=== PATIENT | male | born 1990 | race Caucasian/White ===

== ENCOUNTER 2024-01-08 20:33 | Emergency (ER) | payer SELFPAY ==
[2024-01-08 20:38] VITALS: BP 142/89; PULSE 77; RESP 16; TEMP 36.8; O2SAT 99; BMI 21.8
--- NOTE | 2024-01-08 20:49 | ED_ITS ---
HPI - Skin/Abscess/Foreign Bdy General: Chief complaint: Skin/Abscess/Foreign Body Stated complaint: RASH Time Seen by Provider: 01/08/24 20:35 History of Present Illness: Presents with 1 week history of patchy red dry rash to bilateral elbows and rash to the foot. Onset 1 week ago. Denies itchiness Denies burning Has trialed hydrocortisone. The rash on the toes have gotten better and not the elbows. Denies medical or surgical history Related Data Previous Rx's Medication Instructions Recorded white petrolatum 41 % topical 1 applic topical Q12H #7 grams 01/08/24 ointment (Aquaphor Healing) Review of Systems General: Reports: 10 or more systems reviewed and unremarkable except in HPI and below Physical Exam Skin: NARRATIVE SKIN EXAM: Skin rash to bilateral elbows. RASHES: rashes noted Dry red patchy-eczema appearing Rash type: Yes plaque Rash distribution: Yes clustered Course Vital Signs: Vital signs: Vital Signs Temperature 98.2 F 01/08/24 20:38 Pulse Rate 77 01/08/24 20:38 Respiratory Rate 16 01/08/24 20:38 Blood Pressure 142/89 01/08/24 20:38 Pulse Oximetry 99 01/08/24 20:38 MDM - Skin/Abscess/Foreign Bdy Medicial Decision Making Patient arrived with rash that is very similar appearing to an eczema rash to the bilateral elbows. He has been using hydrocortisone cream on it but it has not improved. Here in the emergency department I provided him with Aquaphor. He is going to be discharged with instructions to use Aquaphor twice daily. All questions answered No radiology studies performed this visit Discharge Plan Discharge Patient Disposition: Home Clinical Impression: Eczema Condition: Stable Prescriptions: New Aquaphor Healing 41 % ointment 1 applic topical Q12H Qty: 7 0RF Discharge Orders: Discharge ED (Routine); Ordered 01/08/24 Ordered By: Dm August Discharge Diet: Advance as tolerated Discharge Activity: Resume usual activity Patient Instructions: Pain Management, Eczema (ED) Coding Level of Care Code ED Engraver Seals for Greyson Long
[2024-01-08 21:09] VITALS: BP 138/86; PULSE 74; RESP 16; O2SAT 98
== END 2024-01-08 21:14 | disposition home or self-care (01) ==
PROVIDERS: Emergency Provider Nurse Practitioner
DX: L30.9 Dermatitis, unspecified (principal)
CPT/HCPCS: 99283

== ENCOUNTER 2024-01-10 09:57 | Emergency (ER) | payer SELFPAY ==
--- NOTE | 2024-01-10 10:01 | ECG_ITS ---
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
[2024-01-10 10:04] VITALS: BP 110/66; PULSE 77; RESP 16; TEMP 36.7; O2SAT 100
--- NOTE | 2024-01-10 10:12 | XR_ITS ---
WS: [id number] XR chest 1V portable [id number] REASON FOR EXAM: chest pain FINDINGS: The heart and the mediastinum are within normal limits. Calcified granulomas disease bilaterally. No acute pulmonary parenchymal or pleural abnormality. No lung nodule, lung mass, or adenopathy. No acute abnormality of the bony thorax. XR/XR chest 1V portable [id number] IMPRESSION: No acute chest abnormality.
--- NOTE | 2024-01-10 10:13 | ED_ITS ---
HPI - Chest Pain 2 General: Chief Complaint: Chest Pain Stated Complaint: chest pain Time Seen by Provider: 01/10/24 10:00 Source: patient Mode of arrival: ambulatory Limitations: no limitations History of Present Illness: Patient is a 33-year-old male who presents to the ED today from nursing home with a complaint of chest pain with deep inhalation. He states symptoms have been intermittent starting yesterday. He states he only has pain with deep inhalation. He has not had a cough or other URI-like symptoms. No fevers. He states he does not feel short of breath at rest. He states with deep inhalation, he feels like his breath catches . Feels like pain is mainly located posteriorly near his left shoulder blade. No recent surgeries. No lower extremity swelling or calf pain. No risk factors for PE. His vital signs are completely stable upon arrival arrival. He clinically appears in no acute distress. Patient was seen here in the ED 2 days ago for a complaint of eczema. MD complaint: chest pain Onset (ago): day(s) Timing of current episode: episodic Prior episodes: Yes Onset: during rest Pain location: posterior Pain radiation: none Severity: moderate Quality: sharp Relieving factors: nothing Exacerbating factors: inspiration Associated symptoms: Reports no associated symptoms; Deny abdominal pain, dyspnea, fever(s), nausea, palpitations, syncope or vomiting Treatment prior to arrival: none Risk Factors: Coronary artery disease risk factors: none Thoracic aortic dissection risk factors: none Related Data Previous Rx's Medication Instructions Recorded white petrolatum 41 % topical 1 applic topical Q12H #7 grams 01/08/24 ointment (Aquaphor Healing) Allergies Allergy/AdvReac Type Severity Reaction Status Date / Time No Known Allergies Allergy Verified 01/10/24 10:08 Review of Systems 2 Const: Denies: fever(s), chills, body aches, fatigue or malaise ENMT: Denies: throat pain, odynophagia, nasal discharge, nasal congestion or sinus pain Card: Reports: chest pain; Denies: palpitations, irregular heart rhythm, edema, swelling of feet/ankles, lightheadedness, syncope, pre-syncope, dyspnea on exertion, orthopnea, leg pain with exertion or acrocyanosis Resp: Reports: pain on inspiration; Denies: dyspnea, productive cough, non-productive cough, wheezing, stridor, hemoptysis or chest congestion GI: Denies: abdominal pain, nausea, vomiting or diarrhea : Denies: flank pain, dysuria or hematuria Musc: Denies: neck pain, back pain, extremity pain, extremity swelling, joint pain or joint swelling Skin/Breast: Denies: rash Neuro: Denies: headache(s), numbness in extremities, weakness in extremities, sensory changes or dizziness Physical Exam 2 Const: COMMON NORMALS: no acute distress, average body habitus, patient oriented x3, no limitations, healthy appearing, alert and well nourished G ENERAL APPEARANCE: cooperative ORIENTATION/CONSCIOUSNESS: Yes awake, Yes oriented to person, Yes oriented to place and Yes oriented to time Neck/C-Spine: COMMON NORMALS: no JVD Chest: COMMONS NORMALS: normal inspection of the chest and normal palpation of entire chest wall Resp: COMMON NORMALS: normal respiratory effort and clear to auscultation bilaterally AUSCULTATION: clear to auscultation bilaterally Cardio: COMMON NORMALS: no JVD, regular rate and regular rhythm RATE: r egular rate RHYTHM: regular rhythm GI: COMMON NORMALS: Normal to inspection, nondistended, normoactive bowel sounds present, Soft to palpation, non-tender, No hepatosplenomegaly present and no masses PALPATION: Yes Soft to palpation and Yes No hepatosplenomegaly present : COMMON NORMALS: Yes no CVA tenderness BLADDER/KIDNEY EXAM: Yes no CVA tenderness Back/Pelvis: COMMON NORMALS: no CVA tenderness, thoracic and lumbar spine normal to inspection, no thoracic nor lumbar tenderness, thoraco-lumbar ROM normal and straight leg raise negative bilaterally Extremity: COMMON NORMALS: normal to inspection, full ROM, capillary refill normal, no joint enlargement, no clubbing, cyanosis or edema, no calf tenderness and no pedal edema GENERAL: Yes normal exam except as noted Neuro: COMMON NORMALS: patient oriented x3, moves all extremities, no focal motor deficits, no sensory deficits noted and gait normal S ENSORIUM/ORIENTATION: Yes alert, Yes oriented to person, Yes oriented to place and Yes oriented to time Skin: COMMON NORMALS: no rashes or lesions noted GENERAL SKIN EXAM: no rashes or lesions noted Course 2 Vital Signs: Vital signs: Vital Signs Temperature 98.0 F 01/10/24 10:04 Pulse Rate 77 01/10/24 10:04 Respiratory Rate 16 01/10/24 10:04 Blood Pressure 110/66 01/10/24 10:04 Pulse Oximetry 100 01/10/24 10:04 Oxygen Delivery Me thod Room Air 01/10/24 10:04 MDM - Chest Pain Medical Decision Making Patient clinically appears in no acute distress. His vital signs are stable. Blood work including CBC, CMP, D-dimer, baseline troponin are all unremarkable. His EKG is nonischemic. CXR is unremarkable. Patient will be allowed back to nursing home. Return to ED precautions given. Medical Records I reviewed the patient's medical records. Lab Data I reviewed the patient's lab results. 01/10/24 10:07 01/10/24 10:07 Laboratory Results WBC 8.19 10^3/uL (3.29-11.43) 01/10/24 10:07 RBC 4.84 10^6/uL (3.85-5.65) 01/10/24 10:07 Hgb 14.40 g/dL (11.27-16.99) 01/10/24 10:07 Hct 44.3 % (37-53) 01/10/24 10:07 MCV 91.5 fl (82-101) 01/10/24 10:07 MCH 29.8 pg (27-33) 01/10/24 10:07 MCHC 32.5 g/dL (30-55) 01/10/24 10:07 RDW 12.5 % (12.1-15.1) 01/10/24 10:07 Plt Count 320 10^3/cmm (157-399) 01/10/24 10:07 MPV 8.9 fL (7.4-10.4) 01/10/24 10:07 Neut % (Auto) 59.4 % 01/10/24 10:07 Lymph % (Auto) 27.5 % 01/10/24 10:07 [place] % (Auto) 9.3 % 01/10/24 10:07 Eos % (Auto) 2.9 % 01/10/24 10:07 Baso % (Auto) 0.7 % 01/10/24 10:07 Neut # (Auto) 4.86 10^3/uL (1.8-7.7) 01/10/24 10:07 Lymph # (Auto) 2.3 10^3/uL (0.8-4.8) 01/10/24 10:07 [place] # (Auto) 0.8 10^3/uL (0.2-0.9) 01/10/24 10:07 Eos # (Auto) 0.2 10^3/uL (0.0-0.8) 01/10/24 10:07 Baso # (Auto) 0.1 10^3/uL (0.0-0.1) 01/10/24 10:07 Nucleated RBC % (auto) 0 % 01/10/24 10:07 Nucleated RBCs # 0.0 /100WBC 01/10/24 10:07 D-Dimer <= 0.27 ug/mLFEU (0-0.59) 01/10/24 10:07 Sodium 140 mmol/L (136-145) 01/10/24 10:07 Potassium 4.3 mmol/L (3.5-5.1) 01/10/24 10:07 Chloride 104 mmol/L (98-107) 01/10/24 10:07 Carbon Dioxide 28 mmol/L (22-29) 01/10/24 10:07 Anion Gap 12.3 (5-19) 01/10/24 10:07 BUN 11 mg/dL (6-20) 01/10/24 10:07 Creatinine 0.9 mg/dL (0.7-1.2) 01/10/24 10:07 GFR Calculation 97.2 mL/min (90-130) 01/10/24 10:07 Glucose 80 mg/dL (65-115) 01/10/24 10:07 Calculated Osmolality 288 mOsm/kg (285-295) 01/10/24 10:07 Calcium 9.1 mg/dL (8.5-10.5) 01/10/24 10:07 Total Bilirubin 0.7 mg/dL (0.15-1.2) 01/10/24 10:07 AST 26 U/L (0-40) 01/10/24 10:07 ALT 26 U/L (0-41) 01/10/24 10:07 Alkaline Phosphatase 59 U/L (40-130) 01/10/24 10:07 Troponin T Baseline < 6 ng/L (0-15) 01/10/24 10:07 Total Protein 7.0 g/dL (6.6-8.7) 01/10/24 10:07 Albumin 4.5 g/dL (3.5-5.2) 01/10/24 10:07 Globulin 2.5 g/dL (1.3-4.6) 01/10/24 10:07 XR interpretation done by ED provider, pending radiology final review Discharge Plan Discharge Patient Disposition: Home Clinical Impression: Non-cardiac chest pain Condition: Stable Prescriptions: No Action Aquaphor Healing 41 % ointment 1 applic topical Q12H Qty: 7 0RF Discharge Orders: Discharge ED (Routine); Ordered 01/10/24 Ordered By: Celine Stephens Activity Restrictions/Additional Instructions: As we discussed, your emergency workup here was unremarkable. You may try ice/heat/anti-inflammatories as allowed while incarcerated. He may return to the emergency department for worsening chest or back pain, shortness of breath or difficulty breathing, lightheadedness/dizziness/passing out episodes, or any other concerns you may have. Coding Level of Care Code ED Spud Grader for Greyson Long
[2024-01-10 10:27] LABS: Basophils # 0.1 10^3/uL (0.0-0.1); Basophils % 0.7 %; Eosinophils # 0.2 10^3/uL (0.0-0.8); Eosinophils % 2.9 %; Hematocrit 44.3 % (37-53); Lymphocytes # 2.3 10^3/uL (0.8-4.8); Lymphocytes % 27.5 %; Mean Corpuscular HGB Conc 32.5 g/dL (30-55); Mean Corpuscular Hemoglobin 29.8 pg (27-33); Mean Corpuscular Volume 91.5 fl (82-101); Mean Platelet Volume 8.9 fL (7.4-10.4); Monocytes # 0.8 10^3/uL (0.2-0.9); Monocytes % 9.3 %; Neutrophils # 4.86 10^3/uL (1.8-7.7); Neutrophils % 59.4 %; Nucleated Red Blood Cells % 0 %; Platelet Count 320 10^3/cmm (157-399); Red Blood Count 4.84 10^6/uL (3.85-5.65); Red Cell Distribution Width 12.5 % (12.1-15.1); White Blood Count 8.19 10^3/uL (3.29-11.43)
[2024-01-10 10:35] LABS: D Dimer <= 0.27 ug/mLFEU (0-0.59)
[2024-01-10 10:37] LABS: Alanine Aminotransferase 26 U/L (0-41); Albumin Level 4.5 g/dL (3.5-5.2); Alkaline Phosphatase 59 U/L (40-130); Anion Gap 12.3 (5-19); Aspartate Amino Transferase 26 U/L (0-40); Blood Urea Nitrogen 11 mg/dL (6-20); Calcium 9.1 mg/dL (8.5-10.5); Carbon Dioxide 28 mmol/L (22-29); Chloride 104 mmol/L (98-107); Creatinine Clr Calc Pharmacy 132.3702; Globulin 2.5 g/dL (1.3-4.6); Glomerular Filtration Rate 97.2 mL/min (90-130); Glucose 80 mg/dL (65-115); Osmolality Calculated 288 mOsm/kg (285-295); Potassium 4.3 mmol/L (3.5-5.1); Sodium 140 mmol/L (136-145); Total Bilirubin 0.7 mg/dL (0.15-1.2)
[2024-01-10 10:39] LABS: Troponin(5th) Baseline < 6 ng/L (0-15)
[2024-01-10 11:13] VITALS: BP 118/66; PULSE 85; O2SAT 99
== END 2024-01-10 11:20 | disposition home or self-care (01) ==
PROVIDERS: Emergency Provider Physician Assistant
DX: R07.89 Other chest pain (principal)
CPT/HCPCS: 71045; 80053; 84484; 85025; 85378; 93005; 99285

== ENCOUNTER 2024-01-15 23:47 | Emergency (ER) | payer SELFPAY ==
[2024-01-15 23:47] VITALS: BP 128/84; PULSE 60; RESP 17; TEMP 37.1; O2SAT 100; BMI 21.2
[2024-01-16 00:33] VITALS: BP 128/84; PULSE 98; RESP 18; O2SAT 96
--- NOTE | 2024-01-16 00:37 | W.ED.SKABFB ---
HPI - Skin/Abscess/Foreign Bdy General: Chief complaint: Skin/Abscess/Foreign Body Stated complaint: RASH ON ARM Time Seen by Provider: 01/15/24 23:52 History of Present Illness: Mr. Pastor is a 33-year-old male inmate from the local detention facility. He presents with a rash to his bilateral elbows for the second time. He was given a cream for this problem on his previous visit, but does not seem to be helping significantly. There is no history of fever, drainage, spreading of the rash. No respiratory symptoms. Related Data Previous Rx's Medication Instructions Recorded clobetasol 0.05 % topical ointment 1 applic topical BID 4 weeks #60 01/16/24 grams Allergies Allergy/AdvReac Type Severity Reaction Status Date / Time No Known Allergies Allergy Verified 01/10/24 10:08 Physical Exam Const: COMMON NORMALS: no acute distress GENERAL APPEARANCE: cooperative; not ill appearing and not frail appearing HENMT: COMMON NORMALS: normocephalic and atraumatic HEAD & SCALP: normocephalic and atraumatic FACE & SINUS: normal facial exam Eye: COMMON NORMALS: Equal, round and reactive pupils present and EOMs intact bilaterally PUPIL: Yes Equal, round and reactive pupils present Neck/C-Spine: GENERAL: Yes trachea midline Chest: CHEST: Yes Symmetrical chest wall rise Resp: COMMON NORMALS: normal respiratory effort, No retractions and No use of accessory muscles Neuro: DIDIER COMA SCALE: document GCS findings Didier coma scale eye opening: Spontaneous [place] coma scale verbal response: Orientated [place] coma scale motor response: Obey commands Didier coma scale total score: 15 SENSORY EXAM: Yes extremities (intact) Psych: COMMON NORMALS: speech normal SPEECH: Yes normal speech Skin: NARRATIVE SKIN EXAM: Dry eczematous rash to the posterior elbows bilaterally. There are no plaques. No rash in other places. No streaking. No drainage from Course Vital Signs: Vital signs: Vital Signs Temperature 98.8 F 01/15/24 23:47 Pulse Rate 98 01/16/24 00:33 Respiratory Rate 18 01/16/24 00:33 Blood Pressure 128/84 01/16/24 00:33 Pulse Oximetry 96 01/16/24 00:33 Oxygen Delivery Me thod Room Air 01/15/24 23:47 MDM - Skin/Abscess/Foreign Bdy Medicial Decision Making The patient has dry skin to his bilateral posterior elbows. Appears to be eczematous. It is not typical of psoriasis in appearance. He was given Aquaphor, without resolution. He will be given clobetasol to use for the next 4 weeks. No radiology studies performed this visit Discharge Plan Discharge Patient Disposition: Home Clinical Impression: Eczema Condition: Stable Prescriptions: New clobetasol 0.05 % ointment 1 applic topical BID 28 Days Qty: 60 0RF Discontinued Aquaphor Healing 41 % ointment 1 applic topical Q12H Qty: 7 0RF Discharge Orders: Discharge ED (Routine); Ordered 01/16/24 Ordered By: Torres Minaya Patient Instructions: Eczema (ED), Opioid Safety, Pain Management Activity Restrictions/Additional Instructions: Use the ointment twice daily for the next 4 weeks or so. Some soaps or detergents can worsen the condition. Coding Level of Care Code ED Electrical Appliance Mechanic for Greyson Long
== END 2024-01-16 00:35 | disposition home or self-care (01) ==
PROVIDERS: Emergency Provider Emergency Medicine
DX: L30.9 Dermatitis, unspecified (principal)
CPT/HCPCS: 99283